=== PATIENT | male | born 1990 | race African-American/Black ===

== ENCOUNTER 2016-07-18 20:59 | Emergency (ER) | payer OTHER | END 2016-07-18 21:29 | LOC: NAV ERS 20:59 | DX: S60.221A Contusion of right hand, initial encounter (principal); S60.511A Abrasion of right hand, initial encounter; F17.200 Nicotine dependence, unspecified, uncomplicated; Y04.0XXA Assault by unarmed brawl or fight, initial encounter ==

== ENCOUNTER 2016-10-25 01:02 | Emergency (ER) | payer OTHER, SELFPAY ==
[2016-10-25] MEDS ORDERED: HYDROcodone/Acetaminophen 5/325 mg Tablet ONE (01:24)
[2016-10-25] MEDS ORDERED: Ibuprofen 800 MG TAB ONE (01:24)
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
== END 2016-10-25 02:20 | disposition home or self-care (01) ==
LOC: NAV ERS 01:02
DX: S70.11XA Contusion of right thigh, initial encounter (principal); F17.210 Nicotine dependence, cigarettes, uncomplicated; V49.9XXA Car occupant (driver) (passenger) injured in unspecified traffic accident, initial encounter; Y04.8XXA Assault by other bodily force, initial encounter

== ENCOUNTER 2021-04-27 17:30 | Emergency (ER) | payer BC, SELFPAY ==
[2021-04-27 19:26] LABS: Bilirubin Negative (Negative); Blood, Urine Negative (Negative); Clarity Clear (Clear); Glucose, Urine (Dipstick) Negative (Negative); Ketone, Urine Negative (Negative); Leukocyte Negative (Negative); Nitrite Negative (Negative); Protein, Urine (Dipstick) Negative (Neg-Trace); Urobilinogen 0.2 mg/dL (Less than 2)
[2021-04-28 22:57] LABS: SARS-CoV-2 PCR by NAA DETECTED (NotDetected)
== END 2021-04-27 20:05 | disposition home or self-care (01) ==
LOC: NAV ERS 17:30
DX: U07.1 COVID-19 (principal); J10.1 Influenza due to other identified influenza virus with other respiratory manifestations; F17.210 Nicotine dependence, cigarettes, uncomplicated
CPT/HCPCS: 81003; 87804; 99283; U0003; U0005